=== PATIENT | female | born 1955 | race Caucasian/White ===

== ENCOUNTER 2017-07-09 06:49 | Emergency (ER) | payer BC ==
[2017-07-09] MEDS ORDERED: ASPIRIN 81 MG CHEW TAB PO ONE (07:30)
[2017-07-09] MEDS ORDERED: SODIUM CHLORIDE 0.9% FLUSH 10 ML FLUSH IVF PRN (07:30)
[2017-07-09 07:36] VITALS: BP 151/77; PULSE 74; RESP 18; O2SAT 96
[2017-07-09 07:43] LABS: AUTOMATED NEUTROPHIL # 5.7 TH/MM3 (1.8-7.7); BASOPHIL % 0.5 % (0.0-2.0); EOSINOPHIL # 0.1 TH/MM3 (0-0.4); EOSINOPHIL % 1.5 % (0.0-4.0); HEMATOCRIT 39.6 % (35.0-46.0); HEMOGLOBIN 13.1 GM/DL (11.6-15.3); LYMPH % 32.4 % (9.0-44.0); LYMPHOCYTE # 3.2 TH/MM3 (1.0-4.8); MEAN CELL VOLUME 87.3 FL (80.0-100.0); MEAN CORPUSCULAR HGB CONC 33.2 % (32.0-36.0); MONO % 8.3 % (0.0-8.0); MONOCYTE # 0.8 TH/MM3 (0-0.9); NEUT % 57.3 % (16.0-70.0); PLATELET COUNT 355 TH/MM3 (150-450); RED BLOOD COUNT 4.53 MIL/MM3 (4.00-5.30); RED CELL DISTRIBUTION WIDTH 13.9 % (11.6-17.2)
--- NOTE | 2017-07-09 08:09 | RADRPT ---
EXAM DATE/TIME: 07/09/2017 07:35 [place] COMPARISON: No previous studies available for comparison. INDICATIONS : Chest pain. MEDICAL HISTORY : None. SURGICAL HISTORY : None. ENCOUNTER: Initial ACUITY: 1 day PAIN SCORE: 8/10 LOCATION: Bilateral chest FINDINGS: A single view of the chest demonstrates the lungs to be symmetrically aerated without evidence of mas s, infiltrate or effusion. The cardiomediastinal contours are unremarkable. Osseous structures are intact. CONCLUSION: No acute disease. Fermín Salazar MD FACR on July 09, 2017 at 8:07 Board Certified Radiologist. This report was verified electronically.
--- NOTE | 2017-07-09 08:12 | PD ---
HPI Chief Complaint: Chest Pain Time Seen by Provider: 07:11 Travel History International Travel<30 days: No Contact w/Intl Traveler<30days: No Traveled to known affect area: No History of Present Illness HPI Patient is a 62-year-old female who comes in complaining of chest pain. She says it started yesterday with some pain in her right shoulder, and then became pain to the middle of her chest. She says it hurts to take a deep breath. She has had some nausea, but no vomiting. She denies fever chills. She denies cough or cold symptoms. She denies history of cardiac issues. She took a baby aspirin this morning without relief of her symptoms. She says nothing seems to make the pain better or worse. Severity is moderate. [facility] Past Medical History Cardiovascular Problems: Yes Allergies-Medications (Allergen,Severity, Reaction): Coded Allergies: No Known Allergies (Unverified , 07/09/17) Review of Systems Except as stated in HPI: all other systems reviewed are Neg General / Constitutional: No: Fever, Chills Eyes: No: Blurred Vision HENT: No: Headaches, Lightheadedness Cardiovascular: Positive: Chest Pain or Discomfort Respiratory: Positive: Shortness of Breath Gastrointestinal: No: Abdominal Pain Genitourinary: No: Dysuria Musculoskeletal: Positive: Pain Skin: No Rash, No Change in Pigmentation Neurologic: No: Weakness, Dizziness Physical Exam Narrative GENERAL: Awake and alert, no acute distress. SKIN: Focused skin assessment warm/dry. No wounds or signs of infection. HEAD: Atraumatic. Normocephalic. EYES: Pupils equal and round. No scleral icterus. ENT: Mucous membranes pink and moist. NECK: Trachea midline. No JVD. CARDIOVASCULAR: Regular rate and rhythm. No murmur appreciated. RESPIRATORY: No accessory muscle use. Clear to auscultation. Breath sounds equal bilaterally. GASTROINTESTINAL: Abdomen soft, nondistended. Tender to palpation of the epigastric area. No rebound or guarding. MUSCULOSKELETAL: No obvious deformities. No clubbing. No cyanosis. No edema. NEUROLOGICAL: Awake and alert. No obvious cranial nerve deficits. Motor grossly within normal limits. Normal speech. PSYCHIATRIC: Appropriate mood and affect; insight and judgment normal. Data Data Last Documented VS Vital Signs Date Time Temp Pulse Resp B/P (MAP) Pulse Ox O2 Delivery O2 Flow Rate FiO2 07/09/17 09:25 (90) 07/09/17 08:16 61 15 98 Room Air Orders Orders Ckmb (Isoenzyme) Profile (07/09/17 07:23) Complete Blood Count With Diff (07/09/17 07:23) Comprehensive Metabolic Panel (07/09/17:23) Prothrombin Time / Inr (Pt) (07/09/17 07:23) Act Partial Throm Time (Ptt) (07/09/17 07:23) Troponin I (07/09/17:) Lipase (07/09/17:23) Chest, Single Ap (07/09/17:23) Ecg Monitoring (07/09/17:) Bilateral Bp Monitoring (07/09/17:) Iv Access Insert/Monitor (07/09/17:) Oximetry (07/09/17:) Aspirin Chew (Aspirin Chew) (07/09/17 07:30) Sodium Chloride 0.9% Flush (Ns Flush) (07/09/17 07:30) Electrocardiogram (07/09/17 07:15) CKMB (07/09/17 07:30) CKMB% (07/09/17 07:30) Labs Laboratory Tests Test 07/09/17 07:30 White Blood Count 10.0 TH/MM3 Red Blood Count 4.53 MIL/MM3 Hemoglobin 13.1 GM/DL Hematocrit 39.6 % Mean Corpuscular Volume 87.3 FL Mean Corpuscular Hemoglobin 29.0 PG Mean Corpuscular Hemoglobin Concent 33.2 % Red Cell Distribution Width 13.9 % Platelet Count 355 TH/MM3 Mean Platelet Volume 9.0 FL Neutrophils (%) (Auto) 57.3 % Lymphocytes (%) (Auto) 32.4 % Monocytes (%) (Auto) 8.3 % Eosinophils (%) (Auto) 1.5 % Basophils (%) (Auto) 0.5 % Neutrophils # (Auto) 5.7 TH/MM3 Lymphocytes # (Auto) 3.2 TH/MM3 Monocytes # (Auto) 0.8 TH/MM3 Eosinophils # (Auto) 0.1 TH/MM3 Basophils # (Auto) 0.0 TH/MM3 CBC Comment DIFF FINAL Differential Comment Prothrombin Time 10.0 SEC Prothromb Time International Ratio 1.0 RATIO Activated Partial Thromboplast Time 25.4 SEC Blood Urea Nitrogen 11 MG/DL Creatinine 0.93 MG/DL Random Glucose 87 MG/DL Total Protein 6.8 GM/DL Albumin 3.3 GM/DL Calcium Level 8.4 MG/DL Alkaline Phosphatase 64 U/L Aspartate Amino Transf (AST/SGOT) 22 U/L Alanine Aminotransferase (ALT/SGPT) 27 U/L Total Bilirubin 0.2 MG/DL Sodium Level 143 MEQ/L Potassium Level 4.4 MEQ/L Chloride Level 108 MEQ/L Carbon Dioxide Level 28.1 MEQ/L Anion Gap 7 MEQ/L Estimat Glomerular Filtration Rate 64 ML/MIN Total Creatine Kinase 106 U/L Creatine Kinase MB 1.3 NG/ML Troponin I LESS THAN 0.02 NG/ML Lipase 243 U/L MDM Medical Decision Making Medical Screen Exam Complete: Yes Emergency Medical Condition: Yes Interpretation(s) ECG shows sinus rhythm at a rate of 77, no ST elevation or depression, normal intervals Differential Diagnosis ACS versus an STEMI versus STEMI Narrative Course Patient is a 62-year-old female comes in complaining of chest pain. She says it started in her back and then moved to her chest. Exam shows some mild epigastric tenderness. IV established, labs sent. Patient connected to the clinical research monitor. Labs show no acute abnormalities. Chest x-ray shows no acute abnormalities. Patient given additional aspirin. She is advised that we cannot rule out cardiac issues based on blood tests performed in the emergency department and that she should stay for observation. She is awake, alert, oriented 3 and understands that by leaving she is at risk for serious illness or . She is elected to sign out AMA. AMA: The risks of leaving against medical advice without further evaluation treatment were discussed with the patient. These risks include cardiac dysfunction, cardiac dysrhythmia, possible heart attack, possible stroke or . The patient indicated understanding of these risks and appeared to have the capacity to make this decision. Diagnosis Primary Impression: Chest pain Qualified Codes: R07.9 - Chest pain, unspecified Disposition: 07 AGAINST MEDICAL ADVICE Carmen Santiago MD Jul 09, 2017 08:12
[2017-07-09 08:16] VITALS: BP_SYST 138; BP_SYST 142; BP_DIAS 67; BP_DIAS 71; PULSE 61; RESP 15; O2SAT 98
[2017-07-09 08:28] LABS: ALBUMIN 3.3 GM/DL (3.4-5.0); ALKALINE PHOSPHATASE 64 U/L (45-117); ALT (GPT) 27 U/L (10-53); AST (GOT) 22 U/L (15-37); BICARBONATE 28.1 MEQ/L (21.0-32.0); BLOOD UREA NITROGEN 11 MG/DL (7-18); CALCIUM 8.4 MG/DL (8.5-10.1); CHLORIDE 108 MEQ/L (98-107); CREATININE 0.93 MG/DL (0.50-1.00); GLOMERULAR FILTRATION RATE 64 ML/MIN (>89); GLUCOSE,RANDOM 87 MG/DL (74-106); SODIUM (NA) 143 MEQ/L (136-145); TOTAL BILIRUBIN ADULT 0.2 MG/DL (0.2-1.0); TOTAL PROTEIN 6.8 GM/DL (6.4-8.2); TROPONIN I LESS THAN 0.02 NG/ML (0.02-0.05)
--- NOTE | 2017-07-09 15:35 | EKG ---
Date Performed: 07/09/2017 Time Performed: 07:15:40 PTAGE: 52 years EKG: Sinus rhythm LOW QRS VOLTAGE IN PRECORDIAL LEADS BORDERLINE ECG NO PREVIOUS TRACING DOCTOR: Addie Sales Interpretating Date/Time 07/09/2017 15:34:03
== END 2017-07-09 09:25 | disposition left against medical advice (07) ==
LOC: NEPE 06:49 → EDBD 06:49 → NEPE 09:25
DX: R07.9 Chest pain, unspecified (principal); R10.13 Epigastric pain; M25.511 Pain in right shoulder; R11.0 Nausea
CPT/HCPCS: 71045; 80053; 82550; 82552; 83690; 84484; 85025; 85610; 85730; 93005